=== PATIENT | male | born 1960 | race Caucasian/White ===

== ENCOUNTER 2020-11-09 11:43 | Outpatient (REF) | payer BC, SELFPAY ==
--- NOTE | ~2020-11-09 | XR_ITS ---
EXAMINATION: XR LUMBOSACRAL SPINE CLINICAL INFORMATION: Back pain COMPARISON: None TECHNIQUE: Three views of the lumbosacral spine. FINDINGS: There is mild curvature of the lumbar spine to the right. Bone alignment is otherwise normal. Disc spaces are normal. There is mild soft tissue arterial calcification. XR/XR lumbar spine 2-3V IMPRESSION: Mild curvature of the lumbar spine.
== END 2020-11-09 11:44 | disposition home or self-care (01) ==
LOC: HO.HMGCX 11:43
PROVIDERS: PCP Internal Medicine; Visit Provider Internal Medicine
DX: M54.5 Low back pain (principal)
CPT/HCPCS: 72100

== ENCOUNTER 2021-12-28 14:30 | Outpatient (REF) | payer BC, SELFPAY ==
--- NOTE | ~2021-12-28 | CT_ITS ---
EXAMINATION: CT ABDOMEN AND PELVIS WITHOUT CONTRAST CLINICAL INFORMATION: Left lower quadrant pain. Rule out diverticulitis. COMPARISON: Previous CT of the abdomen and pelvis July 2019 TECHNIQUE: Multidetector volumetric imaging was performed from the superior aspect of the liver through the pubic symphysis. Sagittal and coronal reformatted images were obtained on the technologist's workstation. This CT examination was performed using dose optimization techniques as appropriate, variously including the following: *Automated exposure control *Adjustment of mA and/or kV according to patient size (this includes techniques or standardized protocols for targeted exams where dose is matched to indication/reason for exam; i.e. extremities or head) *Use of iterative reconstruction technique DLP: 714 mGy-cm FINDINGS: LUNG BASES: There is a 4 mm right middle lobe nodule that is stable. LIVER, GALLBLADDER, AND BILIARY TREE: The liver is normal in size, shape, and attenuation. No focal hepatic lesion or biliary ductal dilatation is present. The gallbladder is unremarkable with no evidence of radiopaque gallstones, gallbladder wall thickening, or obvious pericholecystic inflammatory changes. PANCREAS: Unremarkable. SPLEEN: Unremarkable. ADRENAL GLANDS: Unremarkable. KIDNEYS AND URETERS: The kidneys are normal in size, shape, and attenuation. No hydronephrosis, hydroureter, or calculi seen. No perinephric stranding. BLADDER: Unremarkable. GASTROINTESTINAL TRACT: There is diverticulosis of the colon. There is wall thickening and stranding of the fat surrounding the splenic flexure. There may be a small intramural abscess measuring 1 cm. This probably represents diverticulitis. Small and large bowel is otherwise unremarkable. Stomach is unremarkable. The appendix is unremarkable. ABDOMINAL WALL: There is a small left hernia containing fat. LYMPH NODES: Normal. VASCULAR: Unremarkable. PELVIC VISCERA: Unremarkable. OSSEOUS STRUCTURES: Unremarkable. CT/CT abdomen pelvis wo con IMPRESSION: Diverticulitis of the splenic flexure and probable small intramural abscess. There is marked wall thickening in this region and imaging follow-up post treatment to exclude possible underlying mass is recommended.. Fleischner guidelines were followed. Findings will be communicated by the [place] work flow sailor Liam Funes.
[2021-12-28] MEDS: Barium Sulfate Oral (Berry) 450 ML ORAL.SUSP 900 ML PO (16:48)
== END 2021-12-28 14:31 | disposition home or self-care (01) ==
LOC: HO.CT 14:30
PROVIDERS: PCP Internal Medicine; Visit Provider Internal Medicine Gastroenterology
DX: R10.32 Left lower quadrant pain (principal); R19.7 Diarrhea, unspecified
CPT/HCPCS: 74176

== ENCOUNTER 2022-01-25 07:03 | Outpatient (REF) | payer BC, SELFPAY ==
--- NOTE | ~2022-01-25 | CT_ITS ---
EXAMINATION: CT ABDOMEN AND PELVIS WITHOUT CONTRAST CLINICAL INFORMATION: Diverticulitis COMPARISON: Previous CT of the abdomen and pelvis most recent December 2021 TECHNIQUE: Multidetector volumetric imaging was performed from the superior aspect of the liver through the pubic symphysis. Sagittal and coronal reformatted images were obtained on the technologist's workstation. This CT examination was performed using dose optimization techniques as appropriate, variously including the following: *Automated exposure control *Adjustment of mA and/or kV according to patient size (this includes techniques or standardized protocols for targeted exams where dose is matched to indication/reason for exam; i.e. extremities or head) *Use of iterative reconstruction technique DLP: 599 mGy-cm FINDINGS: LUNG BASES: The visualized lung bases are unremarkable. LIVER, GALLBLADDER, AND BILIARY TREE: The liver is normal in size, shape, and attenuation. No focal hepatic lesion or biliary ductal dilatation is present. The gallbladder is unremarkable with no evidence of radiopaque gallstones, gallbladder wall thickening, or obvious pericholecystic inflammatory changes. PANCREAS: Unremarkable. SPLEEN: Unremarkable. ADRENAL GLANDS: Unremarkable. KIDNEYS AND URETERS: There is a tiny 1 mm nonobstructing stone in the lower pole of the left kidney. The kidneys are otherwise unremarkable. BLADDER: Unremarkable. GASTROINTESTINAL TRACT: There is diverticulosis of the colon. There is focal wall thickening, stranding of the surrounding fat and small amount of fluid of the distal left or proximal sigmoid colon suggestive of diverticulitis. This appears increased from December 2021 exam. No evidence of obstruction, perforation or abscess is seen. Small and large bowel is otherwise unremarkable.. The appendix is unremarkable. ABDOMINAL WALL: There is a small left inguinal hernia containing fat. LYMPH NODES: Normal. VASCULAR: There is evidence of atherosclerotic disease. No aneurysm. PELVIC VISCERA: Unremarkable. OSSEOUS STRUCTURES: Unremarkable. CT/CT abdomen pelvis wo con IMPRESSION: Worsening diverticulitis of the distal left and proximal sigmoid colon. Fleischner guidelines were followed. Findings will be communicated by the [place] work flow drawstring knotter.
[2022-01-25] MEDS: Barium Sulfate Oral (Vanilla) 450 ML ORAL.SUSP 900 ML PO (09:26)
== END 2022-01-25 07:04 | disposition home or self-care (01) ==
LOC: HO.CT 07:03
PROVIDERS: PCP Internal Medicine; Visit Provider Internal Medicine Gastroenterology
DX: K57.92 Diverticulitis of intestine, part unspecified, without perforation or abscess without bleeding (principal)
CPT/HCPCS: 74176

== ENCOUNTER 2024-07-22 12:46 | Outpatient (REF) | payer BC, SELFPAY ==
--- NOTE | ~2024-07-22 | XR_ITS ---
EXAMINATION: XR SHOULDER RIGHT CLINICAL INFORMATION: R/O DJD. COMPARISON: None available TECHNIQUE: AP external rotation, Grashey, scapular Y, and axillary views of the right shoulder. FINDINGS: Severe osteoarthritis of the glenohumeral joint with prominent joint space narrowing and marginal osteophytes. Mild osteoarthritis of the acromioclavicular joint. Remaining bones joints and soft tissues unremarkable. XR/XR shoulder RT min 2V IMPRESSION: Osteoarthritis Electronically signed by: Jack Goodrich MD 08/09/2024 09:26 AM FARHEEN HARMON
== END 2024-07-22 12:47 | disposition home or self-care (01) ==
LOC: HO.HMGCX 12:46
PROVIDERS: PCP Internal Medicine; Visit Provider Internal Medicine
DX: R52 Pain, unspecified (principal)
CPT/HCPCS: 71046; 73030

== ENCOUNTER 2024-09-21 08:59 | Outpatient (AMB) | payer BC, SELFPAY ==
--- NOTE | 2024-09-21 09:03 | A.OFFVIS_ITS ---
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 Patient denies any injuries or surgeries to his right shoulder. Patient reports numbness from the his right shoulder to his right forearm. He has limited ROM making it difficult to bring his arm to his back or lift it above his head. He has tried topical agents as well as Ibuprofen with some relief. 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 He is very busy and very active. He describes pain with overhead motion. He describes pain at the end of the day. He describes difficulty externally rotating or reaching with his right arm. He denies injury. He has not received treatment. HPI Comments Details: Chi is a 63 year old right hand dominant male who presents today as a new patient with complaints of right shoulder pain that began many years ago. Patient denies any injuries or surgeries to his right shoulder. Patient reports numbness from the his right shoulder to his right forearm. He has limited ROM making it difficult to bring his arm to his back or lift it above his head. He has tried topical agents as well as Ibuprofen with some relief. Physical Exam Vital Signs: BMI result Body Mass Index 29.8 Extrem Other: 20 degrees of external rotation compared to 45 on the left. He has active pain abduction to 90 degrees with a 5/5 but painful empty can. Negative Jack and Neer. 120 degrees of overhead motion and internal rotation to hip pocket only. Results Reviewed Results Reviewed: I personally reviewed relevant radiographs. There is moderate to severe glenohumeral osteoarthritis of the right shoulder. Assessment & Plan Assessment & Plan (1) Osteoarthritis of right shoulder: Code(s): M19.011 - Primary osteoarthritis, right shoulder Category: Medical Plan: This is a 63-year-old with right shoulder osteoarthritis. His motion is limited but he has not received any treatment and I certainly think surgical intervention would be overkill at this point. We discussed injections versus therapy versus activity modification. At this point in time I recommend physical therapy. He will see me back in 3 months. Orders: Orders PT Evaluation and Treatment Today M19.011 - Primary osteoarthritis, right shoulder Coding Level of Care Code New Pt Level 3 (46010) Diagnoses Osteoarthritis of right shoulder M19.011
[2024-09-21 09:15] VITALS: BMI 29.8
== END 2024-09-21 09:58 | disposition home or self-care (01) ==
PROVIDERS: PCP Internal Medicine; Visit Provider Orthopaedic Surgery
DX: M19.011 Primary osteoarthritis, right shoulder (principal)
CPT/HCPCS: 99203

== ENCOUNTER 2025-06-28 09:46 | Outpatient (AMB) | payer BC, SELFPAY ==
[2025-06-28 10:26] VITALS: BP 119/69; PULSE 74; RESP 14; TEMP 36.6; O2SAT 97; BMI 31.6
--- NOTE | 2025-06-28 10:26 | MHC.PC.OV ---
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 Accompanied by: Self / Same As Patient Allergies No Known Allergies (No Known Allergies*) Allergy (Unverified 06/28/25 10:30) Tobacco use date assessed: 06/28/25 Dental Screening Dental Screen Date: 06/28/25 Did you have a dental visit in the last 12 months?: Yes Did you have a dental problem in the last 6 months where you did not have access to dental care?: No Was dental information given to patient?: Patient has dentist [facility] Medical History (Updated 06/28/25 @ 10:50 by Bruce Medina MD) Hyperlipidemia Family History (Updated 06/28/25 @ 10:32 by AMANDA Youngblood) Father Prostate cancer Mother Diabetes Social History (Updated 06/28/25 @ 10:32 by AMANDA Youngblood) Housing: House Alcohol intake: current Alcohol intake frequency: a few times a week Patient Tobacco Use Status: Never used Tobacco service: No Current occupational status: employed Cognitive needs: No Hearing needs: No Vision needs: No Questionnaire PHQ-9 Over the last 2 weeks, how often have you been bothered by any of the following problems? 1. Little interest or pleasure in doing things: not at all 2. Feeling down, depressed, or hopeless: not at all 3. Trouble falling or staying asleep, or sleeping too much: not at all 4. Feeling tired or having little energy: not at all 5. Poor appetite or overeating: not at all 6. Feeling bad about yourself - or that you are a failure or have let yourself or your family down: not at all 7. Trouble concentrating on things, such as reading the newspaper or watching television: not at all 8. Moving or speaking so slowly that other people could have noticed. Or the opposite - being so fidgety or restless that you have been moving around a lot more than usual: not at all 9. Thoughts that you would be better off or of hurting yourself in some way: not at all Total score: 0 Source: Developed by Drs. Adolph Bradford, Kimberly Carrasco, Good Schrader and colleagues, with an educational trev from [employer]. Thrive Questionnaire Date Thrive assessed: 06/28/25 I am a: Patient What is your living situation today?: I have a steady place to live Within the past 12 months, did the food you bought not last and you didn't have the money to get more?: Never true Within the past 12 months, did you worry whether your food would run out before you got money to buy more?: Never true Do you have trouble paying for medicines?: No Do you have trouble getting transportation to medical appointments?: No Do you have trouble paying your heating and electricity bill?: No Do you have trouble taking care of your child, family member or friend?: No Do you have trouble with day-to-day activities such as bathing, preparing meals, shopping, managing finances, etc.?: No Are you currently unemployed and looking for a job?: No Are you interested in more education?: No Please select the resources that you would like help with: None THRIVE Score: 0 AUDIT C Alcohol Use Questionnaire (AUDIT-C) 1. How often do you have a drink containing alcohol?: 2-3 times a week 2. How many drinks containing alcohol do you have on a typical day when you are drinking?: 1 or 2 3. How often do you have six or more drinks on one occasion?: Never Total Score: 3 MONY-7 AMB Questionnaire MONY-7 Date MONY - 7 assessed: 06/28/25 Feeling nervous, anxious, or on edge: 0 = Not at all Not being able to stop or control worryin = Not at all Worrying too much about different things: 0 = Not at all Trouble relaxin = Not at all Being so restless that it is hard to sit still: 0 = Not at all Becoming easily annoyed or irritable: 0 = Not at all Feeling afraid as if something awful might happen: 0 = Not at all Total MONY-7 score (0-4 normal; 5-9 mild; 10-14 moderate; 15-21 severe): 0 Source: Developed by Drs. Adolph Bradford, Kimberly Carrasco, Good Schrader and colleagues, with an educational trev from [employer]. Physical exam (Primary Care) Vital Signs: Last Vital Signs Temp 97.8 F 06/28/25 10:26 Pulse 74 06/28/25 10:26 Resp 14 06/28/25 10:26 BP 119/69 06/28/25 10:26 Pulse Ox 97 06/28/25 10:26 Oxygen Delivery Method Room Air 06/28/25 10:26 BMI result Body Mass Index 31.6 Tobacco/Smoking Status: Tobacco use Status Tobacco use date assessed 06/28/25 06/28/25 10:33 Patient Tobacco Use Status Never used Tobacco 06/28/25 10:33 PHQ-9: PHQ-9 Score PHQ-9: Total score 0 06/28/25 10:33 Thrive Assessment: Date of Thrive Assessment Date Thrive assessed 06/28/25 06/28/25 10:33 Office Procedures Flu Questionnaire Does the patient have a severe egg allergy?: No Does the patient have severe life threatening allergies?: No Does the patient have a fever or illness today?: No Has the patient ever had Guillain-[place] Syndrome?: No Has the patient ever had any past reaction to a flu shot?: No Immunizations Fluarix [id number] (PF) 45 mcg (15 mcg x 3)/0.5 mL IM syringe Performing Provider: Bruce Medina MD [facility] [facility] [facility] [place] [facility] Documented (not given) by: AMANDA Youngblood on 06/28/25 10:33 Reason Not Given: Patient Refused Coding Level of Care Code Est Pt Level 4 (65856) Complex EM visit Add On G2211 Diagnoses Hyperlipidemia E78.5 Assessment & Plan Assessment & Plan (1) Hyperlipidemia: Code(s): E78.5 - Hyperlipidemia, unspecified Category: Medical Plan: History of Present Illness - The patient is a 64-year-old male presenting with concerns about his prostate and urinary symptoms. - He reports urinary frequency, occurring every 15-20 minutes at times, and nocturia, waking 1-2 times per night, which has been ongoing for a couple of years. - He is not taking any medication for these symptoms and has not seen a doctor in approximately nine months to a year. - The patient also reports a new, painful lump, possibly a hernia, on one side, and has a known hernia on the other side. - He has a history of gout, for which he takes allopurinol daily. - Past medical history is significant for coronary artery disease, for which he had a stent placed 9-10 years ago. - He was previously on an 80 mg statin but has not taken it for the past six months because he was unable to get a refill. - For preventative care, his previous colonoscopies have been okay, and he has a colonoscopy scheduled for this upcoming July. 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 - Functional Status: His job requires him to be on his feet for 12-14 hours a day. - Substance Use: He reports occasional alcohol use, stating it is less than his prior consumption. Review of Systems - Genitourinary: Reports urinary frequency every 15-20 minutes, and nocturia 1-2 times per night for the last couple of years. - Reports pain in the inguinal area, possibly related to a hernia. - Also reports a painful, erythematous area on his upper body. - Musculoskeletal: Reports significant back pain. - Eyes: Reports his vision is okay but requires reading glasses. Physical Exam General: Cooperative and healthy appearing Nutritional Appearance: Well nourished Orientation/consciousness: Patient oriented x3 Limitations: No limitations Head: Normal to inspection General: Appearance normal, both eyes and all related structures Neck: Normal visual inspection Chest: Normal palpation of entire chest wall Respiratory: Normal respiratory effort Neurology: Patient oriented x3 Results Plan - Orders have been placed for fasting blood work, which will include-kidney function, liver function, and a prostate-specific antigen (PSA) test. - A prescription for a statin medication will be sent to the pharmacy. - An influenza vaccine was offered, but the patient declined. - A digital rectal exam and hernia check were performed in the office. - The patient was advised to provide the office with details of his upcoming colonoscopy appointment. - The patient self-suggested a possible need for a urology consultation. Discussion Notes I discussed the plan to investigate the patient's urinary symptoms and overall health status, as he has not had a medical evaluation in nearly a year. I have ordered fasting blood work, including a PSA, kidney, and liver function tests, and instructed him on where and when to have this completed. Given his history of coronary artery disease with a stent and the fact he has been without his statin for six months, I have sent a new prescription to his pharmacy. I performed a physical exam, including a hernia check which was minimal, and a digital rectal exam to assess the prostate. We also discussed upcoming preventative care, and I requested he provide the office with his colonoscopy appointment details. I offered a flu shot, which he declined. Patient Instructions - Please go for fasting blood work at the lab on [address] in [place], which opens at 6 AM. - A prescription for your cholesterol medication (a statin) has been sent to your pharmacy. - Please call our office to provide the date and location of your colonoscopy scheduled for July. Orders: Orders Influenza [id number] Immunization Today Z23 - Encounter for immunization Basic Metabolic Panel Today E78.5 - Hyperlipidemia, unspecified UA and rflx microscopic Today E78.5 - Hyperlipidemia, unspecified Complete Blood Count no Diff Today E78.5 - Hyperlipidemia, unspecified Lipid Panel Today E78.5 - Hyperlipidemia, unspecified Liver Panel Today E78.5 - Hyperlipidemia, unspecified Thyroid Stimulating Hormone Today E78.5 - Hyperlipidemia, unspecified Prostate Specific Antigen Scr Today E78.5 - Hyperlipidemia, unspecified Medications: New tamsulosin (Flomax) 0.4 mg PO DAILY 90 caps 1RF Changed From atorvastatin PO DAILY To atorvastatin 80 mg PO DAILY 90 tabs 1RF
== END 2025-06-28 10:58 | disposition home or self-care (01) ==
LOC: HO.HMCSH 09:46
PROVIDERS: PCP Internal Medicine; Visit Provider Internal Medicine
DX: Z23 Encounter for immunization (principal); E78.5 Hyperlipidemia, unspecified

== ENCOUNTER → 2025-06-28 09:46 | Outpatient (BNVA) | payer BC, SELFPAY | PROVIDERS: PCP Internal Medicine; Visit Provider Internal Medicine | DX: Z28.21 Immunization not carried out because of patient refusal (principal); E78.5 Hyperlipidemia, unspecified | CPT/HCPCS: 90471; 96127 ==

== ENCOUNTER 2025-07-16 10:21 | Outpatient (AMB) | payer BC, SELFPAY ==
--- OUTSIDE RECORDS SUMMARY | 2024-12-31 04:20 | XMS_ITS ---
Author Organization [facility] Address [address] [place] [phone] Care Team Providers Care Software Lead Name Role Phone NONE, NONE Primary Care Provider Adolph Noguera [phone] REASON FOR VISIT SCREENING COLON Encounters Encounter Location Date Provider Diagnosis [facility] [address] [place] [id number] 12/31/2024 Adolph Lema Plan Of Treatment Next Appt Details Provider Name:Adolph Lema , 08/04/2025 08:30:00 AM, [address] [place] [address] , [place], [place], [phone], Progress Notes * ENEDELIA MOSER RDOB:[birth year] (64 yo M)Acc No.[id number]:12/31/2024 Progress Notes Patient: Armando ONOFRE ENEDELIA Keys Provider: Massimo Lema MD :1960 A ge:64 Y S ex:Male Date:12/31/2024 Address:[address] [place] [phone] Subjective: * Chief Complaints: * S CREENING COLON * The named appointment provid er may or may not be the originator of this progress note, and it is not deemed complete until electronically signed by the appointment provider. Sign off status: Pending * Provider: Massimo Lema MD Date: 0 12/31/2024 Generated for Printi ng/Faxing/eTransmitting on: 1 09/15/2024 10:24 AM EST
--- OUTSIDE RECORDS SUMMARY | 2025-07-16 10:25 | XMS_ITS | Patient Health Record ---
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 Problems Problem Type SNOMED Code ICD Code Onset Dates Problem Status W/U Status Risk Notes Problem Colon cancer screening (412863874) Colon cancer screening (Z12.11) Active confirmed Problem Dysphagia (78285941) Dysphagia (R13.10) Active confirmed Problem Gastroesophageal reflux disease (926714780) GERD (gastroesophag eal reflux disease) (K21.9) Active confirmed Problem Duodenal ulcer (00130606) Duodenal ulcer (K26.9) Active confirmed Problem History of polyp of colon (situation) (084615407) History of colon polyps (Z86.0100) Active confirmed Problem History of adenomatous polyp of colon (679672916) History of adenomatous polyp of colon (Z86.0101) [...] N/A Encounters Encounter Location Date Provider Diagnosis [facility] [address] [place] [phone] 05/06/2025 Adolph Lema GERD (gastroesophage al reflux disease) K21.9 ; Dysphagia R13.10 ; History of colon polyps Z86.0100 ; Colon cancer screening Z12.11 and History of adenomatous polyp of colon Z86.0101 [facility] [address] [place] [phone] 12/31/2024 Adolph Lema Assessments Encounter Date Diagnosis [...] Provider Name:Adolph Lema , 08/04/2025 08:30:00 AM, [address] [place] [address] , [place], [place], [id number], Insurance Providers Payer Name Payer Address Payer Phone Subscriber Number Group Number Insured Name Patient Relationship to Insured Coverage Start Date Coverage End Date [facility] [address] [place] [address] [id number] ENEDELIA MOSER Self - patient is the insured Medical (General) History Medical History History ICD Code Hyperlipidemia Denies DM,CVA,Lung disease,renal disease Coronary artery disease with placement of a stent in approximately 2017. He thinks he might of had a small [place] at that time. He has had no [...] other colonoscopy done after that was in [place] Surgical History Surgery Date(Month/Year) Right inguinal hernia
[2025-07-16 10:54] VITALS: BP 112/88; PULSE 81; TEMP 36.7; O2SAT 98; BMI 32.2
--- NOTE | 2025-07-16 10:54 | MHC.OFFWIV ---
Intake Vital Signs 07/16/25 10:54 Height 5 ft 8.5 in Weight 215 lb BMI 32.2 BP 112/88 Blood Pressure Location Lt brachial Position Sitting Pulse 81 Pulse Source Pulse Oximeter Temp 98.0 F Temp Source Oral Pulse Oximetry (%) 98 Oxygen Delivery Method Room Air Intake Visit Reasons: EP pain urinating Patient Tobacco Use Status: Never used Tobacco Allergies No Known Allergies (No Known Allergies*) Allergy (Verified 07/16/25 11:05) Do you need a note to return to daycare/school/sports/work: No HPI HPI Comments History of Present Illness Details History of Present Illness The patient is a 64-year-old individual presenting with difficulty urinating. - The patient reports a several-month history of urinary symptoms, including a constant urge to urinate, post-void dribbling, and a weak stream. - The patient also has been experiencing intermittent pain along the penis during urination. - Associated symptoms include chills, however no fevers - The patient denies observing blood in the urine or having any penile discharge. - He denies any testicular pain or scrotal swelling - The patient has no history of kidney stones. - He was recently prescribed Flomax by his PCP, however stopped taking the medication after a couple of days due to feeling sick - The patient has an upcoming appointment with a urologist. Review of Systems Constitutional: Reports chills. Negative for fevers Gastroenterology: Negative for nausea or vomiting Genitourinary: Reports difficulty urinating, dysuria, urinary frequency, urinary urgency. Denies flank pain, hematuria, penile discharge, penile swelling, scrotal swelling, testicular pain Physical Exam Constituational: +Alert and oriented, Well nourished, No acute distress. Pulmonary: No respiratory distress Abdominal: Soft, Non-tender, No Left or Right CVA TTP Genitourinary: Patient declined desk editor. No rashes noted along the penis or scrotum. No testicular tenderness to palpation. No penile discharge noted. Musculoskeletal: Moving all extremities spontaneously and against gravity Psychiatric: Cooperative, Appropriate mood & affect, Normal judgment. [facility] Medical History (Updated 06/28/25 @ 10:50 by Bruce Medina MD) Hyperlipidemia Family History (Updated 06/28/25 @ 10:32 by AMANDA Youngblood) Father Prostate cancer Mother Diabetes Social History (Updated 06/28/25 @ 10:32 by TERRANCE Youngblood Housing: House Alcohol intake: current Alcohol intake frequency: a few times a week Patient Tobacco Use Status: Never used Tobacco service: No Current occupational status: employed Cognitive needs: No Hearing needs: No Vision needs: No Physical Exam Vital Signs: Last Vital Signs Temp 98.0 F 07/16/25 10:54 Pulse 81 07/16/25 10:54 BP 112/88 07/16/25 10:54 Pulse Ox 98 07/16/25 10:54 Oxygen Delivery Method Room Air 07/16/25 10:54 BMI result Body Mass Index 32.2 Results AMB Urinalysis, Automated UA Leukoctes 0 David/uL Last Edit by Natalie Monte CMA on 07/16/25 11:23 UA Nitrite Negative Last Edit by Natalie Monte CMA on 07/16/25 11:23 UA Urobilinogen 0.2 mg/dL Last Edit by Natalie oMnte CMA on 07/16/25 11:23 UA Protein 0 mg/dL Last Edit by Natalie Monte CMA on 07/16/25 11:23 UA pH 7.0 Last Edit by Natalie Monte CMA on 07/16/25 11:23 UA Blood 0 Jose Carlos/uL Last Edit by Natalie Monte CMA on 07/16/25 11:23 UA Specific [place] 1.015 Last Edit by Natalie Monte CMA on 07/16/25 11:23 UA Ketone Negative Last Edit by Natalie Monte CMA on 07/16/25 11:23 UA Bilirubin 0 mg/dL Last Edit by Natalie Monte CMA on 07/16/25 11:23 UA Glucose 0 mg/dL Last Edit by Natalie Monte CMA on 07/16/25 11:23 Results Reviewed Results Reviewed: Laboratory Last Values Urine pH (Auto) 7.0 07/16/25 11:22 Specific [place] (Auto) 1.015 07/16/25 11:22 Urine Protein (Auto) 0 mg/dL 07/16/25 11:22 Glucose (UA)(Auto) 0 mg/dL 07/16/25 11:22 Urine Ketones (Auto) Negative 07/16/25 11:22 Urine Blood (Auto) 0 Jose Carlos/uL 07/16/25 11:22 Urine Nitrite (Auto) Negative 07/16/25 11:22 Urine Bilirubin (Auto) 0 mg/dL 07/16/25 11:22 Urine Urobilinogen (Auto) 0.2 mg/dL 07/16/25 11:22 Leukocyte Esterase (Auto) 0 David/uL 07/16/25 11:22 Assessment & Plan Assessment & Plan (1) Difficulty urinating: Code(s): R39.198 - Other difficulties with micturition Plan - Patient presents with dysuria, trouble urinating, urinary urgency, and dribbling for a few months - UA performed in office was unremarkable. Low concern for infectious etiology - Symptoms appear consistent with potential BPH - Advised to try taking Flomax at bedtime to avoid side effects - Discussed follow-up with urologist as scheduled for further evaluation - The patient was counseled to seek emergent care for severe pain, inability to urinate, or a fever above 100.4?F Patient was informed and verbally consented to the use of an ambient scribe for clinic note documentation during the visit. Orders: Orders AMB Urinalysis Automated 07/16/25 Z13.9 - Encounter for screening, unspecified Coding Level of Care Code Est Pt Level 3 (46460) Diagnoses Difficulty urinating R39.198
== END 2025-07-16 11:34 | disposition home or self-care (01) ==
PROVIDERS: Visit Provider Family Medicine
DX: Z13.9 Encounter for screening, unspecified (principal)

== ENCOUNTER → 2025-07-16 10:21 | Outpatient (BNVA) | payer BC, SELFPAY | PROVIDERS: Visit Provider Family Medicine | DX: R39.15 Urgency of urination (principal); N39.43 Post-void dribbling; R39.12 Poor urinary stream; R30.9 Painful micturition, unspecified; R39.198 Other difficulties with micturition | CPT/HCPCS: 81003 ==

== ENCOUNTER 2025-07-26 12:26 | Emergency (ER) | payer BC, SELFPAY ==
--- NOTE | ~2025-07-26 | CT_ITS ---
EXAMINATION: CT ABDOMEN PELVIS WITH IV CONTRAST HISTORY: left inguinal hernia COMPARISON: Comparison is made with the prior examination dated 01/25/2022. TECHNIQUE: CT scan of the abdomen and pelvis was performed following administration of 85 mL Omnipaque 350 using standard departmental protocol. Coronal and sagittal reformatted images were generated and reviewed. Oral contrast material was not administered at the request of the referring physician. This CT exam was performed with one or more of the following dose reduction techniques: automated exposure control, adjustment of the mA and/or kV according to patient size, use of iterative reconstruction technique. DLP: 634 mGy-cm FINDINGS: LOWER CHEST: There is a mild subsegmental atelectasis at both lung bases. There is no pleural effusion. CARDIOVASCULATURE: The heart is normal in size. There is no pericardial effusion. LIVER: The liver is normal in size and contour. No liver mass is identified. The hepatic and portal veins are patent. GALLBLADDER / BILE DUCTS: The gallbladder is unremarkable. There is no intra or extrahepatic biliary ductal dilatation. SPLEEN: The spleen is normal in size. No focal splenic lesion is identified. PANCREAS: The pancreas is unremarkable in appearance. ADRENAL GLANDS: Within normal limits. KIDNEYS/RETROPERITONEUM: No renal calculi are identified. There is no hydronephrosis. No renal masses are identified. LYMPH NODES: No abdominal or pelvic lymphadenopathy. VASCULATURE: The abdominal aorta is normal in caliber. MESENTERY/PERITONEUM: No free fluid. No masses. There is no free intraperitoneal gas. STOMACH: There is a small hiatal hernia. The remainder the stomach is collapsed. SMALL BOWEL: The small bowel is normal in caliber. COLON: There is diverticulosis of the descending and sigmoid colon, without evidence of diverticulitis. APPENDIX: Normal. URINARY BLADDER/PELVIC ORGANS: The urinary bladder is unremarkable. The prostate is mildly enlarged. BONES / SOFT TISSUES: There is a moderate-sized fat-containing left inguinal hernia. CT/CT abdomen pelvis w IV con IMPRESSION: 1. Moderate-sized fat-containing left inguinal hernia. 2. Small hiatal hernia. 3. Diverticulosis of the descending and sigmoid colon, without evidence of diverticulitis. Electronically signed by: Adolph Estes MD 07/26/2025 03:00 PM FARHE[facility] HARMON
[2025-07-26 13:07] VITALS: BP 142/98; PULSE 77; RESP 16; TEMP 36.6; O2SAT 96; BMI 30.8
--- NOTE | 2025-07-26 13:16 | ED.GENADULT ---
[facility] - General Adult General Chief complaint: Abdominal Pain Stated complaint: Injury Time Seen by Provider: 07/26/25 14:05 Source: patient Mode of arrival: ambulatory Limitations: no limitations History of Present Illness ED Provider: Dr. Leon [facility] narrative: 64-year-old male presented hospital today for a left lower abdominal pain. Patient is also complaining of left groin pressure and bulging from the left groin area. Patient stated that he has increased urinary frequency. Also intermittent pain. Related Data Home Medications ?Medication ?Instructions ?Recorded ?Confirmed allopurinol 300 mg tablet 300 mg PO DAILY 06/28/25 aspirin 81 mg tablet 81 mg PO DAILY 06/28/25 Previous Rx's ?Medication ?Instructions ?Recorded atorvastatin 80 mg tablet 80 mg PO DAILY #90 tabs 06/28/25 tamsulosin 0.4 mg capsule (Flomax) 0.4 mg PO DAILY #90 caps 06/28/25 Allergies Allergy/AdvReac Type Severity Reaction Status Date / Time No Known Allergies (No Known Allergy Verified 07/26/25 13:11 Allergies*) Review of Systems Review of Systems: Pertinent review of systems as mentioned in [facility]. All other system otherwise negative. [facility] Past Medical History [facility] Narrative: Medical history as mentioned in [facility] Medical History (Updated 07/27/25 @ 00:00 by Elvis Dunbar) Hyperlipidemia Family History Family History (Updated 06/28/25 @ 10:32 by AMANDA Youngblood) Father Prostate cancer Mother Diabetes Social History Social History (Updated 06/28/25 @ 10:32 by AMANDA Youngblood) Housing: House Alcohol intake: current Alcohol intake frequency: a few times a week Patient Tobacco Use Status: Never used Tobacco service: No Current occupational status: employed Cognitive needs: No Hearing needs: No Vision needs: No Physical Exam ED Exam Exam: General: Pleasant, no distress, interacting appropriately Head: Normacephalic, atraumatic ENT: oral mucosa moist, neck supple, no tracheal deviation Gastrointestinal: Soft, non distended, left lower quadrant tenderness on palpation : Bulge in the left inguinal area. Consistent with inguinal hernia. No signs of incarcerated hernia on exam Neurological: Awake and alert, no facial droop noted Skin: Warm and dry Psychiatric: Appropriate mood and thoughts Vital Signs: Vital Signs - 24 hr 07/26/25 13:07 Temperature 97.9 F Pulse Rate 77 Respiratory Rate 16 Blood Pressure 142/98 H Pulse Oximetry 96 Oxygen Delivery Method Room Air BMI result Body Mass Index 30.8 Course Course Course Narrative: RME: 64-year-old male presents to the ED for lower abdominal pain, increased urinary frequency and low back pain. Patient denies any nausea or vomiting. Labs ordered Medications Administered Discontinued Medications Generic Name Dose Route Start Last Admin Trade Name Stefan PRN Reason Stop Dose Admin Iohexol 100 ml 07/26/25 14:46 07/26/25 14:47 Iohexol 350 Mg/Ml 100 Ml Infus..Btl IV 07/26/25 14:47 85 ml ONCE ONE Administration Medical Decision Making Medical Decision Making [facility] Narrative: 64-year-old male presented hospital today for left lower quadrant abdominal pain and bulge in the left inguinal canal. CT abdomen and pelvis will be obtained. Basic lab work was unremarkable UA is negative. CT imaging shows fat containing left inguinal hernia. No signs of incarceration. Patient will be discharged with follow up with the Surgical Clinic. CT imaging shows left inguinal hernia containing fat, no signs of incarceration. Does have signs of diverticulosis without any diverticulitis. We will plan to discharge patient with follow up with the Surgical Clinic. Encouraged the patient continue take NSAIDs for pain control. The patient is agreeable with this plan. All questions were addressed. Patient is able to ambulate without any issues at this time. Differential Diagnosis Differential Diagnoses: The differential diagnosis associated with the presentation includes incarcerated hernia, inguinal hernia Lab Data [facility] Lab Attestation statement: I reviewed the patient's lab results. 07/26/25 13:30 07/26/25 13:30 Labs: Lab Results 07/26/25 Range/Units 13:30 WBC 6.0 (4.8-10.8) X10*3/uL RBC 4.63 (4.60-5.80) X10*6/uL Hgb 14.9 (14.0-18.0) g/dl Hct 43.6 (42.0-52.0) % MCV 94.2 (80.0-98.0) fL MCH 32.2 (27.0-33.0) pg MCHC 34.2 (31.0-36.0) g/dl RDW 11.9 (11.0-16.0) % Plt Count 275 (160-400) X10*3/uL MPV 9.0 L (9.4-12.4) fL Immature Gran % (Auto) 0.2 (0.0-0.4) % Neut % (Auto) 59.8 (45-73) % Lymph % (Auto) 29.0 (20-40) % [place] % (Auto) 8.0 (2-11) % Eos % (Auto) 2.2 (0-4) % Baso % (Auto) 0.8 (0-2) % Lymph # (Auto) 1.7 (1.2-4.9) X10*3/uL [place] # (Auto) 0.5 (0.1-1.2) X10*3/uL Eos # (Auto) 0.1 (0.0-0.4) X10*3/uL Baso # (Auto) 0.1 (0.0-0.2) X10*3/uL Abs Immat Gran (auto) 0.01 (0.00-0.03) X10*3/uL Absolute Neuts (auto) 3.6 (2.0-8.3) x10*3/uL Absolute Nucleated RBC 0.000 (0.0-0.012) X10*3/uL Nucleated RBC % (auto) 0.0 (0.0-0.2) /100WBC Sodium 140 (135-145) mmol/L Potassium 4.1 (3.3-5.1) mmol/L Chloride 106 (96-108) mmol/L Carbon Dioxide 29 (22-29) mmol/L Anion Gap 9 L (12-20) BUN 14 (9-16) mg/dL Creatinine 0.84 (0.5-1.4) mg/dL Estim Creat Clear Calc 106.7 Estimated GFR > 60 Random Glucose 113 (60-115) mg/dL Calcium 9.3 (8.4-10.2) mg/dL Total Bilirubin 0.4 (0.0-1.0) mg/dL AST 23 (5-37) U/L ALT 31 (0-40) U/L Alkaline Phosphatase 109 (39-117) U/L Total Protein 7.4 (6.5-8.0) g/dL Albumin 4.7 (3.5-5.0) g/dL Lipase 22 (8-78) U/L Urine Color Yellow Urine Appearance Clear Urine pH 7.0 (5.0-9.0) Ur Specific [place] 1.010 (1.005-1.025) Urine Protein Negative (Neg-Trace) mg/dL Urine Glucose (UA) Negative (Negative) mg/dL Urine Ketones Negative (Negative) mg/dL Urine Blood Negative (Negative) Urine Nitrite Negative (Negative) Ur Leukocyte Esterase Negative (Negative) Urine Opiates Screen Not Detected (Not Detect) Ur Buprenorphine Scrn Not Detected (Not Detect) ng/mL Ur Oxycodone Screen Not Detected (Not Detect) ng/mL Urine Methadone Screen Not Detected (Not Detect) ng/mL Urine Fentanyl Screen Not Detected (Not Detect) Ur Barbiturates Screen Not Detected (Not Detect) Ur Phencyclidine Scrn Not Detected (Not Detect) Ur Amphetamines Screen Not Detected (Not Detect) U Benzodiazepines Scrn Not Detected (Not Detect) Urine Cocaine Screen Not Detected (Not Detect) U Marijuana (THC) Screen Not Detected (Not Detect) Independent Interpretation I performed an independent interpretation of an: CT Scan Radiology Impression Discussion of test interpretation with radiology: I have reviewed the radiologist's reading. Discharge Plan Discharge Clinical Impression: Hernia, inguinal, left Patient Disposition: Home, Self-Care Instructions: Inguinal Hernia (ED) Additional Instructions: Take 1000 mg every 8 hours or ibuprofen 400 mg every 6 hours for pain control as needed. Follow up with the surgical clinic for your left inguinal hernia. Watch for signs of incarcerations where you can't reduced the hernia. Prescriptions: No Action allopurinol 300 mg tablet 300 mg PO DAILY aspirin 81 mg tablet 81 mg PO DAILY atorvastatin 80 mg tablet 80 mg PO DAILY Qty: 90 1RF tamsulosin [Flomax] 0.4 mg capsule 0.4 mg PO DAILY Qty: 90 1RF Referrals: [facility] [place] General Surgeons [Provider Group, General Surgery] Clinical Impression: Hernia, inguinal, left Interventions: ED Discharge Assessment Last Done: 07/26/25 15:19 Discharge Date/Time: 07/26/25 15:19 Print Language: Malay
[2025-07-26 13:38] LABS: MANUAL DIFF FLAG NO
[2025-07-26 13:40] LABS: Hematocrit 43.6 % (42.0-52.0); Hemoglobin 14.9 g/dl (14.0-18.0); Imm Gran Abs Auto 0.01 X10*3/uL (0.00-0.03); Imm Gran Pct Auto 0.2 % (0.0-0.4); Lymphocytes Absolute Auto 1.7 X10*3/uL (1.2-4.9); Mean Corpuscular HGB Conc 34.2 g/dl (31.0-36.0); Mean Corpuscular Hemoglobin 32.2 pg (27.0-33.0); Mean Corpuscular Volume 94.2 fL (80.0-98.0); NRBC Abs Auto 0.000 X10*3/uL (0.0-0.012); NRBC Pct Auto 0.0 /100WBC (0.0-0.2); Platelet Count 275 X10*3/uL (160-400); Red Blood Count 4.63 X10*6/uL (4.60-5.80); White Blood Count 6.0 X10*3/uL (4.8-10.8)
[2025-07-26 13:41] LABS: Appearance Urine Clear; Glucose Urine UA Negative (Negative); PH 7.0 (5.0-9.0); Specific Gravity - Urine 1.010 (1.005-1.025)
[2025-07-26 13:53] LABS: Cannabinoid Screen Urine Not Detected (Not Detect)
[2025-07-26 13:59] LABS: Alanine Aminotransferase 31 U/L (0-40); Albumin Level 4.7 g/dL (3.5-5.0); Alkaline Phosphatase 109 U/L (39-117); Anion Gap 9 (12-20); Aspartate Amino Transferase 23 U/L (5-37); Blood Urea Nitrogen 14 mg/dL (9-16); Calcium 9.3 mg/dL (8.4-10.2); Carbon Dioxide 29 mmol/L (22-29); Chloride 106 mmol/L (96-108); Creatinine Clr Calc Pharmacy 106.7; Estimated Glomerular Filt Rate > 60; Lipase 22 U/L (8-78); Potassium 4.1 mmol/L (3.3-5.1); Sodium 140 mmol/L (135-145); Total Protein 7.4 g/dL (6.5-8.0)
[2025-07-26] MEDS: iohexoL 350 MG/ML 100 ML INFUS..BTL IV (14:47)
[2025-07-26 15:19] VITALS: BP 142/98; PULSE 77; RESP 16; TEMP 36.6; O2SAT 96
== END 2025-07-26 15:19 | disposition home or self-care (01) ==
PROVIDERS: Physician Assistant; Emergency Provider Student in an Organized Health Care Education/Training Program; PCP Internal Medicine
DX: K40.90 Unilateral inguinal hernia, without obstruction or gangrene, not specified as recurrent (principal)
CPT/HCPCS: 36415; 74177; 80053; 80307; 81003; 83690; 85025; 99282; 99285; Q9967

== ENCOUNTER → 2025-07-26 14:12 | Outpatient (BNV) | payer BC, SELFPAY | PROVIDERS: Emergency Provider Student in an Organized Health Care Education/Training Program; PCP Internal Medicine; Visit Provider Radiology Diagnostic Radiology | DX: K57.30 Diverticulosis of large intestine without perforation or abscess without bleeding (principal); K44.9 Diaphragmatic hernia without obstruction or gangrene; K40.90 Unilateral inguinal hernia, without obstruction or gangrene, not specified as recurrent | CPT/HCPCS: 74177 ==

== ENCOUNTER 2025-08-02 10:53 | Outpatient (AMB) | payer BC, SELFPAY ==
[2025-08-02 11:12] VITALS: BMI 30.8
--- NOTE | 2025-08-02 11:12 | A.OFFVIS_ITS ---
Vital Signs 08/02/25 11:12 Height 5 ft 10 in Weight 214 lb 15.987 oz BMI 30.8 Intake Visit Reasons: left inguinal hernia Intake Note: [place] [facility] for left inguinal hernia. Pt c/o; left groin, reports pain/discomfort, denies changes in bowel habits. abd/pelvius CT-07/26/2025 Tank Hoop Bender Required: No Accompanied by: Self / Same As Patient Allergies No Known Allergies (No Known Allergies*) Allergy (Verified 08/02/25 11:17) Medication List - Last Reconciled 08/02/25 by Vishal Thomas MD allopurinol 300 mg PO DAILY aspirin 81 mg PO DAILY atorvastatin 80 mg PO DAILY tamsulosin (Flomax) 0.4 mg PO DAILY HPI HPI left inguinal hernia: Details: 64-year-old male referred for a left inguinal hernia. He has noticed this small reducible mass and occasional discomfort in the left groin for about 5 years. Over the years, he says that this seems to be worsening. 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 [facility] Medical History (Updated 08/02/25 @ 11:35 by Vishal Thomas MD) Reducible left inguinal hernia CAD (coronary artery disease) Hyperlipidemia Family History Father Prostate cancer Mother Diabetes Social History Housing: House Alcohol intake: current Alcohol intake frequency: a few times a week Patient Tobacco Use Status: Never used Tobacco service: No Current occupational status: employed Cognitive needs: No Hearing needs: No Vision needs: No Review of Systems Const Denies chills and Denies fever(s) Card Denies chest pain, Denies dyspnea and Denies dyspnea on exertion Resp Denies cough, Denies dyspnea and Denies dyspnea on exertion GI Denies hematochezia and Denies change in bowel habits Denies hematuria and Denies difficulty urinating Musc Denies back pain and Denies limited range of motion Neuro Denies focal weakness and Denies convulsions Psych Denies depression and Denies mood swings Physical Exam Vital Signs: BMI result Body Mass Index 30.8 Const General: comfortable and no acute distress Orientation/consciousness: patient oriented x3 Neck Neck: Yes no lymphadenopathy Resp Auscultation: clear to auscultation bilaterally Cardio Rhythm: regular rhythm GI Other: Left inguinal hernia, palpable with Valsalva Palpation (GI): Soft to palpation, nontender and no guarding Neuro General: patient oriented x3 Assessment & Plan Assessment & Plan (1) Reducible left inguinal hernia: Code(s): K40.90 - Unilateral inguinal hernia, without obstruction or gangrene, not specified as recurrent Category: Medical Plan: He has a left inguinal hernia, palpable with Valsalva. He also had a CAT scan done on a recent visit to the ER and this shows a fat containing left inguinal hernia In view of symptoms, he wants to proceed with the repair. I explained to him the technique of repair with mesh. I reviewed the risks including but not limited to bleeding, infections, recurrence, injury to bowel past the, as the be nefits and alternatives. I explained to him what to expect postoperatively. He understands and wants to proceed. Coding Level of Care Code New Pt Level 3 (17781) Diagnoses Reducible left inguinal hernia K40.90
== END 2025-08-02 11:30 | disposition home or self-care (01) ==
LOC: HO.HGS 10:54
PROVIDERS: PCP Internal Medicine; Visit Provider Surgery
DX: K40.90 Unilateral inguinal hernia, without obstruction or gangrene, not specified as recurrent (principal)
CPT/HCPCS: 99203

== ENCOUNTER 2025-08-04 07:11 | Day surgery (SDC) | payer BC, SELFPAY ==
--- OUTSIDE RECORDS SUMMARY | 2024-12-31 04:20 | XMS_ITS ---
Author Organization [facility] Address [address] [place] [id number] Care Team Providers Care Cupola Tender Name Role Phone NONE, NONE Primary Care Provider Adolph Noguera [phone] REASON FOR VISIT SCREENING COLON Encounters Encounter Location Date Provider Diagnosis [facility] [address] [place] [id number] 12/31/2024 Adolph Lema Plan Of Treatment Next Appt Details Provider Name:Adolph Lema , 08/04/2025 08:30:00 AM, [address] [place] [address] , [place], [place], [phone], Progress Notes * ENEDELIA MOSER RDOB:[birth year] (64 yo M)Acc No.[id number]:12/31/2024 Progress Notes Patient: Armando ONOFRE ENEDELIA Keys Provider: Massimo Lema MD :1960 A ge:64 Y S ex:Male Date:12/31/2024 Address:[address] [id number] Subjective: * Chief Complaints: * S CREENING COLON * The named appointment provid er may or may not be the originator of this progress note, and it is not deemed complete until electronically signed by the appointment provider. Sign off status: Pending * Provider: Massimo Lema MD Date: 0 12/31/2024 Generated for Printi ng/Fageovannag/eTransmitting on: 1 09/07/2024 01:48 AM EST
--- OUTSIDE RECORDS SUMMARY | 2025-07-08 01:48 | XMS_ITS | Patient Health Record ---
Author Organization [facility] Address [address] [place] [address] Care Team Providers Care Armored Machine Operator Name Role Phone NONE, NONE Primary Care Provider Adolph Noguera [phone] Allergies No Known Allergies Reason For Referral No Information Medications Medication SIG (Take, Route, Frequency, Duration) Notes Start Date End Date Status Aspirin 81 81 MG Tablet Delayed Release 1 tablet Orally Once a day 05/06/2025 Active Atorvastatin Calcium 40 MG Tablet 1 tablet Orally Once a day Active Immunizations Vaccine Route Administration Date Status Comme nts Influenza Unknown 05/06/2025 Refused Social History Tobacco Use: Social History Observation Description Date Details (start date - stop date) Never Smoker NA - NA Social History Drug/Alcohol: Social Info Question Answer Notes AUDIT-C (Standard) Did you have a drink containing alcohol in the past year? Yes How often did you have a drink containing alcohol in the past year? 2 to 3 times a week (3 points) How many drinks did you have on a typical day when you were drinking in the past year? 7 to 9 drinks (3 points) How often did you have six or more drinks on one occasion in the past year? 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 Problems Problem Type SNOMED Code ICD Code Onset Dates Problem Status W/U Status Risk Notes Problem Colon cancer screening (933352606) Colon cancer screening (Z12.11) Active confirmed Problem Dysphagia (18090821) Dysphagia (R13.10) Active confirmed Problem Gastroesophageal reflux disease (251161390) GERD (gastroesophag eal reflux disease) (K21.9) Active confirmed Problem Duodenal ulcer (91527626) Duodenal ulcer (K26.9) Active confirmed Problem History of polyp of colon (situation) (961128114) History of colon polyps (Z86.0100) Active confirmed Problem History of adenomatous polyp of colon (014376078) History of adenomatous polyp of colon (Z86.0101) Active confirmed Vital Signs Temperature 98.6 degrees Fahrenheit 05/06/2025 Blood pressure diastolic 01 mm Hg 05/06/2025 Height 69 in 05/06/2025 Blood pressure systolic 001 mm Hg 05/06/2025 Weight 218.2 lbs 05/06/2025 BMI 32.22 kg/m2 05/06/2025 Procedures Procedure Date Ordered Date Performed Result Body Sit e UPPER GI ENDOSCOPY BALLOOON DILATION OF ESOPH 05/06/2025 N/A COLONOSCOPY 05/06/2025 N/A Encounters Encounter Location Date Provider Diagnosis [facility] [address] [place] [phone] 05/06/2025 Adolph Lema GERD (gastroesophage al reflux disease) K21.9 ; Dysphagia R13.10 ; History of colon polyps Z86.0100 ; Colon cancer screening Z12.11 and History of adenomatous polyp of colon Z86.0101 [facility] [address] [place] [phone] 12/31/2024 Adolph Lema Assessments Encounter Date Diagnosis (ICD Code) Assessment Notes Treatment Notes Treatment Clinical Notes Section Notes 05/06/2025 Dysphagia (ICD-10 - R13.10) Overall, Enedelia appears well. Given his history of a tubular adenoma and his last colonoscopy being at least 5 years ago, I did recommend a follow-up colonoscopy for further screening purposes. We did review the rationale for that in regard to colorectal cancer prevention. Given his history of intermittent dysphagia and occasional reflux I did recommend an upper endoscopy with possible dilation on the same day. Given just the intermittent and relatively infrequent episodes of his dysphagia this does not sound particularly worrisome and does not sound consistent with anything such as a neoplasm. This sounds more consistent with either some intermittent esophageal spasm or possibly in relation to an esophageal ring. I did advise him to eat slowly and carefully.Full consent has been obtained from him for both procedures, including risks of bleeding and perforation. The procedures will be done with monitored anesthesia care. He was advised not to use any aspirin on the morning of the procedures. Enedelia was comfortable with this plan. Thank you again for allowing me to participate in Enedelia's care. I shall continue to keep you advised of his progress. 05/06/2025 GERD (gastroesophage al reflux disease) (ICD-10 - K21.9) Overall, Enedelia appears well. Given his history of a tubular adenoma and his last colonoscopy being at least 5 years ago, I did recommend a follow-up colonoscopy for further screening purposes. We did review the rationale for that in regard to colorectal cancer prevention. Given his history of intermittent dysphagia and occasional reflux I did recommend an upper endoscopy with possible dilation on the same day. Given just the intermittent and relatively infrequent episodes of his dysphagia this does not sound particularly worrisome and does not sound consistent with anything such as a neoplasm. This sounds more consistent with either some intermittent esophageal spasm or possibly in relation to an esophageal ring. I did advise him to eat slowly and carefully.Full consent has been obtained from him for both procedures, including risks of bleeding and perforation. The procedures will be done with monitored anesthesia care. He was advised not to use any aspirin on the morning of the procedures. Enedelia was comfortable with this plan. Thank you again for allowing me to participate in Enedelia's care. I shall continue to keep you advised of his progress. 05/06/2025 History of colon polyps (ICD-10 - Z86.0100) Overall, Enedelia appears well. Given his history of a tubular adenoma and his last colonoscopy being at least 5 years ago, I did recommend a follow-up colonoscopy for further screening purposes. We did review the rationale for that in regard to colorectal cancer prevention. Given his history of intermittent dysphagia and occasional reflux I did recommend an upper endoscopy with possible dilation on the same day. Given just the intermittent and relatively infrequent episodes of his dysphagia this does not sound particularly worrisome and does not sound consistent with anything such as a neoplasm. This sounds more consistent with either some intermittent esophageal spasm or possibly in relation to an esophageal ring. I did advise him to eat slowly and carefully.Full consent has been obtained from him for both procedures, including risks of bleeding and perforation. The procedures will be done with monitored anesthesia care. He was advised not to use any aspirin on the morning of the procedures. Enedelia was comfortable with this plan. Thank you again for allowing me to participate in Enedelia's care. I shall continue to keep you advised of his progress. 05/06/2025 Colon cancer screening (ICD-10 - Z12.11) Overall, Enedelia appears well. Given his history of a tubular adenoma and his last colonoscopy being at least 5 years ago, I did recommend a follow-up colonoscopy for further screening purposes. We did review the rationale for that in regard to colorectal cancer prevention. Given his history of intermittent dysphagia and occasional reflux I did recommend an upper endoscopy with possible dilation on the same day. Given just the intermittent and relatively infrequent episodes of his dysphagia this does not sound particularly worrisome and does not sound consistent with anything such as a neoplasm. This sounds more consistent with either some intermittent esophageal spasm or possibly in relation to an esophageal ring. I did advise him to eat slowly and carefully.Full consent has been obtained from him for both procedures, including risks of bleeding and perforation. The procedures will be done with monitored anesthesia care. He was advised not to use any aspirin on the morning of the procedures. Enedelia was comfortable with this plan. Thank you again for allowing me to participate in Enedelia's care. I shall continue to keep you advised of his progress. 05/06/2025 History of adenomatous polyp of colon (ICD-10 - Z86.0101) Overall, Enedelia appears well. Given his history of a tubular adenoma and his last colonoscopy being at least 5 years ago, I did recommend a follow-up colonoscopy for further screening purposes. We did review the rationale for that in regard to colorectal cancer prevention. Given his history of intermittent dysphagia and occasional reflux I did recommend an upper endoscopy with possible dilation on the same day. Given just the intermittent and relatively infrequent episodes of his dysphagia this does not sound particularly worrisome and does not sound consistent with anything such as a neoplasm. This sounds more consistent with either some intermittent esophageal spasm or possibly in relation to an esophageal ring. I did advise him to eat slowly and carefully.Full consent has been obtained from him for both procedures, including risks of bleeding and perforation. The procedures will be done with monitored anesthesia care. He was advised not to use any aspirin on the morning of the procedures. Enedelia was comfortable with this plan. Thank you again for allowing me to participate in Enedelia's care. I shall continue to keep you advised of his progress. Plan Of Treatment Pending Test Test Name Order Date UPPER GI ENDOSCOPY BALLOOON DILATION OF ESOPH 05/06/2025 COLONOSCOPY 05/06/2025 Next Appt Details Provider Name:Adolph Lema , 08/04/2025 08:30:00 AM, [address] [place] [address] , [place], [place], [id number], Insurance Providers Payer Name Payer Address Payer Phone Subscriber Number Group Number Insured Name Patient Relationship to Insured Coverage Start Date Coverage End Date [facility] [address] [place] [address] [phone] [id number] ENEDELIA MOSER Self - patient is the insured Medical (General) History Medical History History ICD Code Hyperlipidemia Denies DM,CVA,Lung disease,renal disease Coronary artery disease with placement of a stent in approximately 2017. He thinks he might of had a small ID at that time. He has had no problems since that time. Diverticulitis in [address] scan and treated with outpatient antibiotics He describes 2 previous colo noscopies at approximately age 52 and age 57 with removal of polyps on at least one of them- He had a colonoscopy in [address] Thomas with the removal of 1 small tubular adenoma. He thinks the other colonoscopy done after that was in [place] Surgical History Surgery Date(Month/Year) Right inguinal hernia
--- NOTE | 2025-08-02 09:56 | HO.ANESPROP2 ---
Documented by User: Simona Bentley NP 08/02/25 09:57 HPI - Anesthesia Eval Consult details Narrative: 64yo M for Colonoscopy, Upper Endoscopy with Balloon Dilitation [facility] Active Problems Active Problems: All Active Problems Hyperlipidemia (Acute) Osteoarthritis of right shoulder (Acute) Past Medical History Medical History Myocardial infarction Diverticulitis Reducible left inguinal hernia CAD (coronary artery disease) Hyperlipidemia Family History Family History Father Prostate cancer Mother Diabetes Surgical History Surgical History Hx of right inguinal hernia repair Hx of heart artery stent H/O colonoscopy Social History Social History Household Members: Spouse Housing: House Alcohol intake: current Alcohol intake frequency: a few times a week Patient Tobacco Use Status: Never used Tobacco Use of substances other than those prescribed or required for medical reasons: No Are you DNR?: No Advance Directives: No Advance Directives Information Provided: Yes service: No Current occupational status: employed Cognitive needs: No Hearing needs: No Vision needs: No Meds Allergies Allergy/AdvReac Type Severity Reaction Status Date / Time No Known Allergies (No Known Allergy Verified 08/02/25 11:17 Allergies*) Home Medications ?Medication ?Instructions ?Recorded ?Confirmed ?Last Taken ?Type aspirin 81 mg tablet 81 mg PO DAILY 06/28/25 08/02/25 08/01/25 History Exam Pertinent Lab Results Pertinent Lab Results: Laboratory Tests 07/26/25 13:30 WBC 6.0 Hgb 14.9 Hct 43.6 Plt Count 275 Sodium 140 Potassium 4.1 Chloride 106 Carbon Dioxide 29 BUN 14 Creatinine 0.84 Assessment and Plan Assessment Anesthesia Assessment: Chart Reviewed Documented by User: Torres Lozano MD 08/04/25 08:02 [facility] Past Medical History Medical History Myocardial infarction Diverticulitis Reducible left inguinal hernia CAD (coronary artery disease) Hyperlipidemia Functional capacity: independent ambulation Family History Family History Father Prostate cancer Mother Diabetes Family history of problems with anesthesia: No Surgical History Surgical History Hx of right inguinal hernia repair Hx of heart artery stent H/O colonoscopy History of Problems with Anesthesia: No Social History Social History Household Members: Spouse Housing: House Alcohol intake: current Alcohol intake frequency: a few times a week Patient Tobacco Use Status: Never used Tobacco Use of substances other than those prescribed or required for medical reasons: No Are you DNR?: No Advance Directives: No Advance Directives Information Provided: Yes service: No Current occupational status: employed Cognitive needs: No Hearing needs: No Vision needs: No Meds Allergies Allergy/AdvReac Type Severity Reaction Status Date / Time No Known Allergies (No Known Allergy Verified 08/02/25 11:17 Allergies*) Home Medications ?Medication ?Instructions ?Recorded ?Confirmed ?Last Taken ?Type aspirin 81 mg tablet 81 mg PO DAILY 06/28/25 08/02/25 08/01/25 History Exam Exam Date and Time: 08/04/2025 Airway Mallampati Class: II TM Dist: >3cm Neck ROM: Full Loose/Missing/Broken Teeth: No Heart: normal Lungs: cta Other: normal Assessment and Plan Assessment Anesthesia Assessment: Anesthesia Plan Discussed Final Anesthetic Review Family History of Problems with Anesthesia: No History of Problems with Anesthesia: No NPO: Yes Final Preanesthetic Review: No Changes in Pt Med Stat, Meds/Allgs Chart Reviewed, Consent Obtained/Reviewed and Anes Risks/Benef Reviewed Patient Risk: Low Procedure Risk: Low Anesthetic Plan Anesthetic Plan: MAC: Disposition: Standard PACU
[2025-08-04 07:26] VITALS: BMI 30.5
[2025-08-04 07:30] VITALS: BP 134/86; PULSE 73; RESP 16; TEMP 36.3; O2SAT 97
[2025-08-04] MEDS: Lactated Ringers 1,000 ML 100 ML IVCONT (07:42)
--- NOTE | 2025-08-04 09:40 | P.BOP_ITS ---
Brief Operative Note Date of Service: 08/04/25 Pre-op diagnosis: Dysphagia, GERD, Screening Post-op diagnosis: other (Hiatal hernia, Gastritis, Diverticulosis) Procedure: EGD with biopsies and Balloon dilation of EG Junction from 18mm to 19mm to 20mm, Colonoscopy to the cecum Surgeon: Adolph Lema MD Anesthesia: MAC Was an Nailing Machine Operator Automatic used for this Procedure?: No Estimated blood loss (mL): 2.0 Pathology: other (A. EG Junction at 38cm B. Gastric antrum) Condition: stable Disposition: PACU
[2025-08-04 09:41] VITALS: BP 110/80; PULSE 70; RESP 16; TEMP 36.3; O2SAT 91
[2025-08-04 09:43] VITALS: O2SAT 95
[2025-08-04 09:55] VITALS: BP 116/81; PULSE 69; RESP 16; O2SAT 96
[2025-08-04 10:03] VITALS: BP 120/92; PULSE 71; RESP 16; TEMP 36.3; O2SAT 96
--- NOTE | 2025-08-05 06:59 | OP_ITS ---
DATE OF SERVICE: 08/04/2025 SURGEON: Adolph Lema MD INDICATIONS: The patient presents for evaluation of intermittent gastroesophageal reflux and dysphagia, personal history of colon polyps, and colorectal cancer screening. Full consent has been obtained from him for this, including risks of bleeding and perforation. PREOPERATIVE DIAGNOSIS: POSTOPERATIVE DIAGNOSIS: PROCEDURE PERFORMED: Esophagogastroduodenoscopy with biopsies and balloon dilation of gastroesophageal junction, and colonoscopy to the cecum. ESTIMATED BLOOD LOSS: COMPLICATIONS: ANESTHESIA: Medication used, monitored anesthesia care. ASSISTANTS: SPECIMENS: PREOPERATIVE DIAGNOSES: Gastroesophageal reflux, dysphagia, personal history of colon polyps and colorectal cancer screening. POSTOPERATIVE DIAGNOSES: Gastroesophageal reflux, dysphagia, personal history of colon polyps and colorectal cancer screening, small hiatal hernia, nonobstructing distal esophageal stricture, gastroesophageal reflux, gastritis, diverticulosis, and internal hemorrhoids. DESCRIPTION OF PROCEDURE: The patient was placed in the left lateral decubitus position. The Olympus video gastroscope was passed in the posterior oropharynx and upper esophagus under direct vision. The scope was passed slowly to the distal esophagus. The gastroesophageal junction appeared at 38 cm. With insufflation of air, I did visualize what appeared to be a nonobstructing fibrotic esophageal stricture without mass or ulceration. The scope easily passed this. The gastroesophageal junction was slightly irregular but no evidence of any esophagitis or any definitive De Guzman's esophagus. The scope was advanced to pylorus. The duodenum was cannulated in the descending portion. The duodenum including the bulb appeared normal without mass or ulceration. Scope was withdrawn back to the stomach. The gastric antrum and body had some mild changes of gastritis with erythema and edema, but no erosions or ulceration. Biopsies were obtained. The scope was retroflexed visualizing the proximal stomach carefully which appeared normal, without any sign of mass or ulceration. The scope was straightened and withdrawn back into the esophagus. Given his symptoms and the findings, I did use a [employer] esophageal balloon to dilate the gastroesophageal junction from 18 mm to 19 mm to 20 mm. This was done at the recommended pressure for between 30 and 60 seconds each. Post dilation, there was some minimal heme and disruption of the gastroesophageal junction. I did obtain biopsies at the gastroesophageal junction as well. The remainder of the esophagus proximal to this appeared normal. Scope was withdrawn from the patient. He was turned around for the colonoscopy. The digital rectal exam revealed no abnormalities. The Olympus video pediatric colonoscope was entered into the rectum and advanced easily to the cecum. Once in the cecum, I did identify normal-appearing cecal pouch with appendiceal orifice, and normal-appearing ileocecal valve. There was transillumination of light deep in the lower quadrant. The entire cecum and ileocecal valve appeared normal. The scope was slowly withdrawn assessing all mucosal surfaces carefully. Preparation was excellent. I did not visualize any sign of polyps, colitis, or angiodysplasia. There was mild amount of sigmoid diverticulosis. In the rectum, scope was retroflexed visualizing internal hemorrhoids, but no other pathology. The rectal mucosa appeared normal. Scope was straightened and withdrawn from the patient. He tolerated both procedures well and was returned to the recovery area in stable condition. IMPRESSION: 1. Nonobstructing distal esophageal stricture, status post balloon dilation. 2. Hiatal hernia. 3. Mild gastritis. 4. Gastroesophageal reflux. 5. Diverticulosis. 6. Internal hemorrhoids. PLAN: The results of biopsies will be checked. I shall start him on omeprazole 20 mg daily given today's findings and his symptoms of intermittent reflux and dysphagia, which may be related to esophageal spasm from acid reflux. I would recommend a repeat colonoscopy in 5 years for further screening and surveillance. He will be seen in followup as well. This has been discussed with his . MD MARIMAR Griffin/MARISA / [phone]
== END 2025-08-04 10:33 | disposition home or self-care (01) ==
PROVIDERS: Visit Provider Internal Medicine
PROC: 0DJD8ZZ Inspection of Lower Intestinal Tract, Via Natural or Artificial Opening Endoscopic (ICD-10-PCS; CPT 45378; principal; 2025-08-04 08:30)
PROC: (CPT 43239; 2025-08-04 08:30)
DX: Z12.11 Encounter for screening for malignant neoplasm of colon (principal); K21.9 Gastro-esophageal reflux disease without esophagitis; R13.10 Dysphagia, unspecified; Z86.0100 Personal history of colon polyps, unspecified; Z86.0101 Personal history of adenomatous and serrated colon polyps; K64.8 Other hemorrhoids; K57.30 Diverticulosis of large intestine without perforation or abscess without bleeding; K22.2 Esophageal obstruction; K44.9 Diaphragmatic hernia without obstruction or gangrene
CPT/HCPCS: 43239; 43249; 88305; 88313; 88342; C1726; J2003; J2704; J3010